=== PATIENT | male | born 1945 | race Caucasian/White ===

== ENCOUNTER 2025-05-28 11:54 | Inpatient (IN) | payer MEDICARE, MEDICAID ==
[~2025-05-28] VITALS: Ht 175.3 cm; Wt 91.6 kg
[2025-05-28 12:41] LABS: PLATELET COUNT (AUTO) 163 K/uL (150-450); RED BLOOD CELL COUNT(AUTO) 4.90 MIL/uL (4.50-5.90); RED CELL DISTRIBUTION WIDTH 15.3 % (11.5-14.5); WHITE BLOOD COUNT (AUTO) 7.4 K/uL (4.5-11.0)
[2025-05-28 12:48] LABS: CALCIUM, TOTAL 8.1 mg/dL (8.8-10.5); CREATININE 0.94 mg/dL (0.60-1.30); GLOMERULAR FILTR. RATE CALC > 60 mL/min (>60); GLUCOSE,RANDOM 90 mg/dL (70-110); SODIUM SERUM 141 mmol/L (136-145); UREA NITROGEN, BLOOD 21 mg/dL (7-18)
[2025-05-28 12:53] LABS: COVID AG,FIA SOURCE NASAL SWAB
[2025-05-28 13:02] LABS: APPEARANCE,URINE HAZY (CLEAR); GLUCOSE, URINE (UA) NEGATIVE (NEGATIVE); LEUKOCYTE ESTERASE ,URINE LARGE (NEGATIVE); NITRATE,URINE NEGATIVE (NEGATIVE); OCCULT BLOOD,URINE NEGATIVE (NEGATIVE); PH,URINE DRUG SCREEN 6.0 (5.0-8.0); SPECIFIC GRAVITIY, URINE 1.010 (1.003-1.030)
[2025-05-28 13:07] LABS: AMPHET/METH SCREEN,URINE NEGATIVE (NEGATIVE); BARBITURATE SCREEN, URINE NEGATIVE (NEGATIVE); CANNABINOID SCREEN,URINE NEGATIVE (NEGATIVE); COCAINE SCREEN,URINE NEGATIVE (NEGATIVE); METHADONE SCREEN, URINE NEGATIVE (NEGATIVE)
[2025-05-28 13:08] LABS: ALCOHOL, URINE DRUG SCREEN NEGATIVE (NEGATIVE)
[2025-05-28 13:16] LABS: SQUAMOUS EPITHELIAL CELL,UR Few /LPF (None Seen)
[2025-05-28 13:22] LABS: SARS-COV2 (COVID) ANTIGEN,FIA Negative (Negative)
[2025-05-28] MEDS ORDERED: ACETAMINOPHEN 325 MG TABLET PO PRN (14:30)
[2025-05-28] MEDS ORDERED: IPRATROPIUM BROMIDE 0.5 MG/2.5 ML NEB SOLUTION NEB PRN (14:30)
[2025-05-28] MEDS ORDERED: ONDANSETRON HCL 4 MG/2 ML VIAL IVP PRN (14:30)
[2025-05-28] MEDS ORDERED: ALBUTEROL SULFATE 2.5 MG/0.5 ML NEB SOLUTION NEB PRN (14:30)
[2025-05-28] MEDS: CefTRIAXone 1 GM/DEXTROSE 50 ML IV ONE (15:26)
[2025-05-28] MEDS: RINGERS SOLUTION,LACTATED 500 ML IV ONE (15:58)
[2025-05-28 17:00] VITALS: BP 133/68; PULSE 100; RESP 19; TEMP 97.9; O2SAT 99
[2025-05-28 19:21] VITALS: BP 121/77; PULSE 89; RESP 18; TEMP 98.4; O2SAT 100
[2025-05-28] MEDS ORDERED: DIVA-111 PO (22:31)
[2025-05-28] MEDS ORDERED: TRAZ-257 PO (22:31)
[2025-05-28] MEDS ORDERED: MULT-660 PO (22:31)
[2025-05-28] MEDS ORDERED: SIME80TA82 PO (22:31)
[2025-05-28] MEDS ORDERED: BUSP15 PO (22:31)
[2025-05-28] MEDS ORDERED: ATRO5DRO13 OU (22:31)
[2025-05-28] MEDS ORDERED: FURO40TA6 PO (22:31)
[2025-05-28] MEDS ORDERED: ATOR40TA28 PO (22:31)
[2025-05-28] MEDS ORDERED: RISP-31 PO (22:31)
[2025-05-28] MEDS ORDERED: RISP0.5T80 PO (22:31)
[2025-05-28] MEDS ORDERED: POTA-206 PO (22:31)
[2025-05-28] MEDS ORDERED: GABA-1201 PO (22:31)
[2025-05-28] MEDS ORDERED: LIDO-57 TP (22:31)
[2025-05-28] MEDS ORDERED: HYDR-5256 PO (22:31)
[2025-05-28] MEDS ORDERED: SIMETHICONE 80 MG CHEWABLE TABLET PO PRN (22:45)
[2025-05-29 04:20] VITALS: BP 100/67; PULSE 55; RESP 18; TEMP 98.4; O2SAT 97
[2025-05-29 05:59] LABS: PLATELET COUNT (AUTO) 138 K/uL (150-450); RED BLOOD CELL COUNT(AUTO) 4.41 MIL/uL (4.50-5.90); RED CELL DISTRIBUTION WIDTH 15.1 % (11.5-14.5); WHITE BLOOD COUNT (AUTO) 6.0 K/uL (4.5-11.0)
[2025-05-29 06:06] LABS: CALCIUM, TOTAL 7.9 mg/dL (8.8-10.5); CREATININE 0.77 mg/dL (0.60-1.30); GLOMERULAR FILTR. RATE CALC > 60 mL/min (>60); GLUCOSE,RANDOM 89 mg/dL (70-110); SODIUM SERUM 141 mmol/L (136-145); UREA NITROGEN, BLOOD 17 mg/dL (7-18)
[2025-05-29 07:43] VITALS: BP 103/73; PULSE 55; RESP 20; TEMP 98.8; O2SAT 95
[2025-05-29] MEDS: POTASSIUM CHLORIDE 20 MEQ ER TABLET PO SCH (08:48)
[2025-05-29] MEDS: ATORVASTATIN CALCIUM 40 MG TABLET PO SCH (08:48)
[2025-05-29] MEDS: GABAPENTIN 400 MG CAPSULE PO SCH (08:49)
[2025-05-29] MEDS: DIVALPROEX SODIUM 250 MG DR TABLET PO SCH (08:49)
[2025-05-29] MEDS: MULTIVITAMINS, THERAPEUTIC TABLET PO SCH (08:49)
[2025-05-29] MEDS ORDERED: SODIUM CHLORIDE 0.9% 500 ML IV ONE (16:14)
[2025-05-29] MEDS: CefTRIAXone 1 GM/DEXTROSE 50 ML IV SCH (16:27)
[2025-05-29 17:01] VITALS: BP 134/74; PULSE 66; RESP 18; TEMP 97.3; O2SAT 96
[2025-05-29 17:52] VITALS: BP 121/72; PULSE 77; RESP 20; TEMP 97.5; O2SAT 95
[2025-05-29 20:10] VITALS: BP 148/94; PULSE 83; RESP 20; TEMP 98.6; O2SAT 97
[2025-05-29] MEDS: DIVALPROEX SODIUM 500 MG DR TABLET PO SCH (20:12)
[2025-05-30 05:08] VITALS: BP 113/52; PULSE 64; RESP 18; TEMP 97.7; O2SAT 97
[2025-05-30 07:52] VITALS: BP 125/59; PULSE 63; RESP 18; TEMP 98.2; O2SAT 96
[2025-05-30] MEDS ORDERED: SODIUM CHLORIDE 0.9% 500 ML IV ONE (15:20)
[2025-05-30 15:58] VITALS: BP 143/86; PULSE 78; RESP 18; TEMP 97.5; O2SAT 96
[2025-05-30 20:06] VITALS: BP 138/72; PULSE 76; RESP 18; TEMP 98.2; O2SAT 98
[2025-05-31 05:11] VITALS: BP 112/54; PULSE 64; RESP 18; TEMP 98.1; O2SAT 96
[2025-05-31 08:00] VITALS: BP 120/52; PULSE 73; RESP 19; TEMP 98.1; O2SAT 99
[2025-05-31 16:00] VITALS: BP 127/67; PULSE 68; RESP 20; TEMP 97.5; O2SAT 95
[2025-05-31] MEDS ORDERED: CEFT1VIA65 IV (18:39)
[2025-05-31] MEDS ORDERED: DIVA-112 PO (18:39)
[2025-05-31] MEDS ORDERED: QUET25TA PO (18:40)
[2025-05-31] MEDS ORDERED: ACET-2247 PO (18:41)
[2025-05-31] MEDS ORDERED: QUET100T PO (18:41)
[2025-05-31] MEDS ORDERED: ALBU2.5V39 NEB (18:42)
[2025-05-31] MEDS ORDERED: IPRA0.2S49 NEB (18:44)
[2025-05-31] MEDS ORDERED: FURO20TA5 PO (18:45)
[2025-05-31 19:46] VITALS: BP 102/57; PULSE 61; RESP 18; TEMP 98.1; O2SAT 97
== END 2025-05-31 22:35 | DRG 689 ==
LOC: EMS 12:22 → EDH 14:28 → 6S 17:24 → 4E 05-29 17:40
PROVIDERS: ADMIT Internal Medicine; ATTEND Internal Medicine
DX: N30.00 Acute cystitis without hematuria (principal); G92.8 Other toxic encephalopathy; G20.A1 Parkinson's disease without dyskinesia, without mention of fluctuations; Z20.822 Contact with and (suspected) exposure to COVID-19; F31.9 Bipolar disorder, unspecified; Z79.899 Other long term (current) drug therapy
CPT/HCPCS: 71046; 80048; 80164; 80307; 81001; 83735; 83880; 85025; 87040; 87077; 87081; 87086; 87186; 96361; 96365; 97116; 97163; 99285; G0378; G0480; J0696; J1630; J7040; J7120; 36415-L1; 36415-TC

== ENCOUNTER 2025-06-11 12:28 | Inpatient (IN) | payer MEDICARE, MEDICAID ==
[~2025-06-11] VITALS: Ht 177.8 cm; Wt 92.6 kg
[~2025-06-11 12:28] MED LIST: ACET-2247 PO; ALBU2.5V39 NEB; ATOR40TA28 PO; ATRO5DRO13 OU; CEFT1VIA65 IV; DIVA-112 PO; FURO20TA5 PO; GABA-1201 PO; HYDR-5256 PO; IPRA0.2S49 NEB; MULT-660 PO; POTA-206 PO; QUET100T PO; QUET25TA PO; SIME80TA82 PO
[2025-06-11] MEDS ORDERED: QUET25TA PO (12:48)
[2025-06-11 13:02] LABS: PLATELET COUNT (AUTO) 163 K/uL (150-450); RED BLOOD CELL COUNT(AUTO) 4.95 MIL/uL (4.50-5.90); RED CELL DISTRIBUTION WIDTH 16.0 % (11.5-14.5); WHITE BLOOD COUNT (AUTO) 7.5 K/uL (4.5-11.0)
[2025-06-11 13:10] LABS: CALCIUM, TOTAL 8.6 mg/dL (8.8-10.5); CREATININE 0.90 mg/dL (0.60-1.30); GLOMERULAR FILTR. RATE CALC > 60 mL/min (>60); GLUCOSE,RANDOM 109 mg/dL (70-110); SODIUM SERUM 137 mmol/L (136-145); UREA NITROGEN, BLOOD 26 mg/dL (7-18)
[2025-06-11 13:20] LABS: COVID AG,FIA SOURCE NASAL SWAB
[2025-06-11 13:39] LABS: SARS-COV2 (COVID) ANTIGEN,FIA Negative (Negative)
[2025-06-11 14:27] LABS: APPEARANCE,URINE CLEAR (CLEAR); GLUCOSE, URINE (UA) NEGATIVE (NEGATIVE); LEUKOCYTE ESTERASE ,URINE LARGE (NEGATIVE); NITRATE,URINE NEGATIVE (NEGATIVE); OCCULT BLOOD,URINE NEGATIVE (NEGATIVE); PH,URINE DRUG SCREEN 5.5 (5.0-8.0); SPECIFIC GRAVITIY, URINE 1.020 (1.003-1.030)
[2025-06-11 14:33] LABS: AMPHET/METH SCREEN,URINE NEGATIVE (NEGATIVE); BARBITURATE SCREEN, URINE NEGATIVE (NEGATIVE); CANNABINOID SCREEN,URINE NEGATIVE (NEGATIVE); COCAINE SCREEN,URINE NEGATIVE (NEGATIVE); METHADONE SCREEN, URINE NEGATIVE (NEGATIVE)
[2025-06-11 14:34] LABS: ALCOHOL, URINE DRUG SCREEN NEGATIVE (NEGATIVE)
[2025-06-11] MEDS ORDERED: LOPERAMIDE HCL 2 MG CAPSULE PO PRN (14:45)
[2025-06-11] MEDS ORDERED: MAG HYDROX/ALUMINUM HYD/SIMETH ES 30 ML SUSPENSION UDCUP PO PRN (14:45)
[2025-06-11] MEDS ORDERED: ZOLPIDEM TARTRATE 10 MG TABLET PO PRN (14:45)
[2025-06-11] MEDS ORDERED: PROMETHAZINE HCL 25 MG TABLET PO PRN (14:45)
[2025-06-11] MEDS ORDERED: TUBERCULIN, PURIFIED PROTEIN DERIVATIVE 5 TU/0.1 ML SYRINGE ID ONE (14:45)
[2025-06-11] MEDS ORDERED: ACETAMINOPHEN 325 MG TABLET PO PRN (14:45)
[2025-06-11] MEDS ORDERED: MAGNESIUM HYDROXIDE SUSPENSION 30 ML UDCUP PO PRN (14:45)
[2025-06-11 14:46] LABS: SQUAMOUS EPITHELIAL CELL,UR Few /LPF (None Seen)
[2025-06-11] MEDS: CEPHALEXIN MONOHYDRATE 500 MG CAPSULE PO ONE (15:12)
[2025-06-11] MEDS: DIVALPROEX SODIUM 500 MG ER TABLET PO SCH (20:09)
[2025-06-11] MEDS: THIAMINE 100 MG TABLET PO SCH (21:00)
[2025-06-11 21:22] VITALS: BP 118/82; PULSE 84; RESP 18; TEMP 97.5; O2SAT 94
[2025-06-11] MEDS ORDERED: SIMETHICONE 80 MG CHEWABLE TABLET CHEW PRN (21:45)
[2025-06-11] MEDS ORDERED: IPRATROPIUM BROMIDE 0.5 MG/2.5 ML NEB SOLUTION NEB PRN (21:45)
[2025-06-11] MEDS ORDERED: ALBUTEROL SULFATE 2.5 MG/0.5 ML NEB SOLUTION NEB PRN (21:45)
[2025-06-11] MEDS: OLANZapine 10 MG RAPDIS TABLET PO SCH (23:53)
[2025-06-12 06:39] LABS: PLATELET COUNT (AUTO) 157 K/uL (150-450); RED BLOOD CELL COUNT(AUTO) 4.94 MIL/uL (4.50-5.90); RED CELL DISTRIBUTION WIDTH 15.9 % (11.5-14.5); WHITE BLOOD COUNT (AUTO) 7.6 K/uL (4.5-11.0)
[2025-06-12 07:06] LABS: ASPARTATE AMINOTRANSFERASE 14 U/L (15-37); CALCIUM, TOTAL 8.8 mg/dL (8.8-10.5); CREATININE 0.84 mg/dL (0.60-1.30); GLOMERULAR FILTR. RATE CALC > 60 mL/min (>60); GLUCOSE,RANDOM 87 mg/dL (70-110); SODIUM SERUM 139 mmol/L (136-145); TOTAL PROTEIN, SERUM 6.7 g/dL (6.4-8.2); UREA NITROGEN, BLOOD 23 mg/dL (7-18)
[2025-06-12 07:13] LABS: CHOL/HDL RATIO 2.0 (4.2-7.3); LDL CHOL (CALC.) 48.0 mg/dL (0-130)
[2025-06-12 08:27] VITALS: BP 131/69; PULSE 71; RESP 18; TEMP 97.6; O2SAT 96
[2025-06-12] MEDS: CEPHALEXIN MONOHYDRATE 500 MG CAPSULE PO SCH (08:59)
[2025-06-12] MEDS: MULTIVITAMINS WITH MINERALS, THERAPEUTIC TABLET PO SCH ×2 (08:59→09:01)
[2025-06-12] MEDS: FOLIC ACID 1 MG TABLET PO SCH (08:59)
[2025-06-12] MEDS ORDERED: PALIPERIDONE PALMITATE 39 MG/0.25 ML SYRINGE IM ONE (09:00)
[2025-06-12] MEDS: ATORVASTATIN CALCIUM 40 MG TABLET PO SCH (09:01)
[2025-06-12 20:16] VITALS: BP 119/82; PULSE 85; RESP 16; TEMP 97.7; O2SAT 98
[2025-06-13] MEDS: FUROSEMIDE 20 MG TABLET PO SCH (09:00)
[2025-06-13] MEDS: ETHYL ALCOHOL 62% ANTISEPTIC NASAL SANITIZER 0.6 ML AMPUL NASAL SCH (09:01)
[2025-06-13 09:28] VITALS: BP 130/85; PULSE 104; RESP 16; TEMP 98.3; O2SAT 96
[2025-06-13] MEDS: OLANZapine 5 MG RAPDIS TABLET PO PRN (21:46)
[2025-06-14 09:08] VITALS: BP 124/74; PULSE 93; RESP 18; TEMP 98; O2SAT 96
[2025-06-14] MEDS ORDERED: LIDOCAINE 5% TRANSDERMAL PATCH TD PRN ×2 (11:30→11:45)
[2025-06-14] MEDS: -LIDODERM PATCH NOTE- MISC SCH (20:14)
[2025-06-14] MEDS: TAMSULOSIN HCL 0.4 MG CAPSULE PO SCH (20:14)
[2025-06-14 21:08] VITALS: BP 121/72; PULSE 88; RESP 18; TEMP 97.6; O2SAT 96
[2025-06-15 09:37] VITALS: BP 131/78; PULSE 106; RESP 16; TEMP 98.4; O2SAT 96
[2025-06-15 21:00] VITALS: BP 129/78; PULSE 94; RESP 18; TEMP 98.4; O2SAT 97
[2025-06-16 09:41] VITALS: BP 135/82; PULSE 111; RESP 18; TEMP 97.8; O2SAT 96
[2025-06-16 09:42] VITALS: BP 135/82; PULSE 111; RESP 18; TEMP 97.8; O2SAT 96
[2025-06-16 20:14] VITALS: BP 150/98; PULSE 74; RESP 18; TEMP 98; O2SAT 100
[2025-06-16] MEDS: OLANZapine 10 MG RAPDIS TABLET PO SCH (20:18)
[2025-06-17 10:07] VITALS: BP 142/75; PULSE 61; RESP 17; TEMP 98.9; O2SAT 100
[2025-06-17 21:55] VITALS: BP 112/86; PULSE 90; RESP 16; TEMP 98.2; O2SAT 97
[2025-06-18 08:24] VITALS: BP 114/78; PULSE 96; RESP 18; TEMP 97.8; O2SAT 96
[2025-06-18] MEDS: GuaiFENesin/D-METHORPHAN [SUGAR-FREE] 200-20MG/10 ML SYRUP UDCUP PO PRN (21:39)
[2025-06-18 22:36] VITALS: BP 130/80; PULSE 80; RESP 18; TEMP 97.9; O2SAT 97
[2025-06-19] MEDS: LEVOTHYROXINE SODIUM 25 MCG TABLET PO SCH (08:24)
[2025-06-19 09:23] VITALS: BP 133/63; PULSE 90; RESP 18; TEMP 97.5; O2SAT 96
[2025-06-19] MEDS: DICLOFENAC SODIUM 50 MG DR TABLET PO SCH (12:38)
[2025-06-19] MEDS: DUTASTERIDE 0.5 MG CAPSULE PO SCH (21:09)
[2025-06-19 23:42] VITALS: BP 132/92; PULSE 80; RESP 18; TEMP 97.2; O2SAT 97
[2025-06-20 10:50] VITALS: BP 130/55; PULSE 61; RESP 17; TEMP 98.4; O2SAT 95
[2025-06-20] MEDS: SIMETHICONE 80 MG CHEWABLE TABLET CHEW PRN (11:14)
[2025-06-20] MEDS: DUTASTERIDE 0.5 MG CAPSULE PO SCH (21:12)
[2025-06-20 21:48] VITALS: BP 138/78; PULSE 76; RESP 18; TEMP 98.1; O2SAT 95
[2025-06-21 12:28] VITALS: BP 129/74; PULSE 72; RESP 18; TEMP 97.9; O2SAT 97
[2025-06-21 22:37] VITALS: BP 138/57; PULSE 78; RESP 18; TEMP 97.6; O2SAT 95
[2025-06-21] MEDS: ESZOPICLONE 2 MG TABLET PO PRN (22:52)
[2025-06-22] MEDS ORDERED: OLAN10TA26 PO ×2 (11:02→11:41)
[2025-06-22] MEDS ORDERED: DIVA-153 PO ×2 (11:02→11:41)
[2025-06-22 13:31] VITALS: BP 133/72; PULSE 85; RESP 18; TEMP 98; O2SAT 96
[2025-06-22] MEDS ORDERED: DUTA0.5C38 PO (14:11)
[2025-06-22] MEDS ORDERED: TAMS0.4C94 PO (14:12)
[2025-06-22] MEDS ORDERED: DICL50TA10 PO (14:12)
[2025-06-22] MEDS ORDERED: LEVO25TA9 PO (14:13)
[2025-07-10] MEDS ORDERED: PALIPERIDONE PALMITATE 39 MG/0.25 ML SYRINGE IM SCH (09:00)
== END 2025-06-22 18:09 | disposition home or self-care (01) | DRG 885 ==
LOC: EMS 12:28 → 3EC 20:20
PROVIDERS: ADMIT Psychiatry & Neurology Psychiatry; ATTEND Psychiatry & Neurology Psychiatry
PROC: GZHZZZZ Group Psychotherapy (ICD-10-PCS; principal; 2025-06-11)
PROC: GZ51ZZZ Individual Psychotherapy, Behavioral (ICD-10-PCS; 2025-06-11)
PROC: GZ56ZZZ Individual Psychotherapy, Supportive (ICD-10-PCS; 2025-06-12)
DX: F31.2 Bipolar disorder, current episode manic severe with psychotic features (principal); F41.9 Anxiety disorder, unspecified; G20.A1 Parkinson's disease without dyskinesia, without mention of fluctuations; Z60.8 Other problems related to social environment; G47.9 Sleep disorder, unspecified; Z20.822 Contact with and (suspected) exposure to COVID-19; K21.9 Gastro-esophageal reflux disease without esophagitis; R41.89 Other symptoms and signs involving cognitive functions and awareness; N40.0 Benign prostatic hyperplasia without lower urinary tract symptoms; Z91.148 Patient's other noncompliance with medication regimen for other reason; Z87.440 Personal history of urinary (tract) infections; Z59.9 Problem related to housing and economic circumstances, unspecified
CPT/HCPCS: 80048; 80053; 80061; 80164; 80307; 81001; 83036; 84439; 84443; 85025; 86592; 87081; 87086; 97110; 97162; 97166; 97530; 97535; 99285; G0480